=== PATIENT | male | born 1955 | race Caucasian/White ===

== ENCOUNTER 2016-08-02 17:15 | Emergency (ER) | payer OTHER ==
[2016-08-02 17:22] VITALS: BP 156/95; PULSE 93; TEMP 98.3; BMI 22.8
--- NOTE | 2016-08-02 17:23 | PDOC ---
Rapid Medical Evaluation Time Seen by Provider: 08/02/16 17:17 Medical Evaluation: Allergies Allergy/AdvReac Type Severity Reaction Status Date / Time shrimp Allergy Intermediate Itching Verified 08/02/16 17:20 08/02/16 17:20 RME Note: I have performed a brief, in-person evaluation of this patient . This patient presents with CC: woke up with CP, heart palp., and SOB; took 325mg ASA this am Pertinent PE findings are: 156/96, HR=93; lungs clear I have ordered: EKG, labs The patient will proceed to ED for further evaluation. JR
[2016-08-02 17:34] LABS: BASOPHIL 0.3 % (0-2.0); MCHC 33.8 g/dl (32.0-35.9); MEAN CELL VOLUME 85.8 fl (80-96); MEAN PLT VOLUME 8.5 fl (7.5-11.1); NEUTROPHILS 47.9 % (42.8-82.8); PLATELET COUNT 170 K/MM3 (134-434); RDW 13.9 % (11.9-15.9); WHITE BLOOD COUNT 4.4 K/mm3 (4.0-10.0)
[2016-08-02 17:52] LABS: INR 1.11 (0.82-1.09); PROTHROMBIN TIME (PATIENT) 12.2 SEC (9.98-11.88)
[2016-08-02 17:55] LABS: ACTIVATED PTT 29.3 SECONDS (26.9-34.4)
[2016-08-02 17:57] LABS: ALBUMIN 3.8 g/dl (3.4-5.0); ANION GAP 8 (8-16); BILIRUBIN,TOTAL 0.4 mg/dL (0.2-1.0); CALCIUM 8.5 mg/dL (8.5-10.1); CO2 28 mmol/L (21-32); CREATININE 1.1 mg/dL (0.7-1.3); GLUCOSE,RANDOM 115 mg/dL (74-106); SGOT/AST 16 U/L (15-37); SGPT/ALT 29 U/L (12-78); TOT PROT 7.6 g/dl (6.4-8.2)
[2016-08-02 17:59] LABS: ALK PHOS 86 U/L (45-117); TROPONIN I < 0.02 ng/ml (0.00-0.05)
--- NOTE | 2016-08-02 19:58 | PDOC ---
History of Present Illness - General Chief Complaint: Chest Pain Stated Complaint: CHEST PAIN/PALPITATIONS/SOB Time Seen by Provider: 08/02/16 17:17 - History of Present Illness Initial Comments: 08/02/16 19:56 CHIEF COMPLAINT: palpitations HISTORY OF PRESENT ILLNESS: 60 yo M with no significant PMH presents to ED with palpitations and shortness of breath while lying down since yesterday. No recent travel or sick contacts. PAST MEDICAL HISTORY: Denies past medical history FAMILY HISTORY: Denies SOCIAL HISTORY: Denies tobacco, alcohol, illicit drug use. SURGICAL HISTORY: Denies ALLERGIES: No known drug allergies REVIEW OF SYSTEMS General/Constitutional: Denies fever or chills. Denies weakness, weight change. HEENT: Denies change in vision. Denies ear pain or discharge. Denies sore throat. Cardiovascular: Palpitations. Denies chest pain or shortness of breath. Respiratory: Denies cough, wheezing, or hemoptysis. Gastrointestinal: Denies nausea, vomiting, diarrhea or constipation. Denies rectal bleeding. Genitourinary: Denies dysuria, frequency, or change in urination. Musculoskeletal: Denies joint or muscle swelling or pain. Denies neck or back pain. Skin and breasts: Denies rash or easy bruising. Neurologic: Denies headache, vertigo, loss of consciousness, or loss of sensation. PHYSICAL EXAM General Appearance: Well-appearing, appropriately dressed. No apparent distress. HEENT: EOMI, PERRLA,normal voice. No conjunctival pallor. No photophobia, scleral icterus. Respiratory/Chest: Lungs CTAB. Cardiovascular: RRR. S1, S2. Vascular Pulses: Dorsalis-Pedis (R): 2+, Dorsalis-Pedis (L): 2+ Gastrointestinal/Abdominal: Normal bowel sounds. Abdomen soft, non-distended. No tenderness or rebound tenderness. No organomegaly, pulsatile mass, guarding , hernia, hepatomegaly, splenomegaly. Musculoskeletal/Extremities: Normal inspection. FROM of all extremities, normal capillary refill. No tenderness to extremities, pedal edema, swelling, erythema or deformity. Integumentary: Appropriate color, dry, warm. No cyanosis, erythema, jaundice or rash Neurologic: accounts receivable representative II-XII intact. Fully oriented, alert. Appropriate mood/affect. Motor strength 5/5. No appreciable EOM palsy, facial droop or sensory deficit. Past History - Past Medical History Allergies/Adverse Reactions: Allergies Allergy/AdvReac Type Severity Reaction Status Date / Time shrimp Allergy Intermediate Itching Verified 08/02/16 17:20 Home Medications: Ambulatory Orders Aspirin [ASA -] 325 mg PO ONCE 08/02/16 Folic Acid 0.4 mg PO DAILY 08/02/16 Anemia: No Asthma: Yes (NO MED) Cancer: No Cardiac Disorders: No CVA: No COPD: No CHF: No Dementia: No Diabetes: No GI Disorders: No Disorders: No HTN: No Hypercholesterolemia: No Liver Disease: No Suicide Attempt (Hx): No Seizures: No Thyroid Disease: No - Surgical History Abdominal Surgery: Yes (HERNIA REPAIR 2012) Appendectomy: No Cardiac Surgery: No Cholecystectomy: No Lung Surgery: No Neurologic Surgery: No Orthopedic Surgery: Yes (RT ROTATOR CUFF REPAIR, RT MENISCUS REPAIR, PINKY FX) - Psycho/Social/Smoking Cessation Hx Anxiety: No Suicidal Ideation: No Smoking Status: No Smoking History: Never smoked Number of Cigarettes Smoked Daily: 0 Hx Alcohol Use: Yes (VERY RARE) Drug/Substance Use Hx: No Substance Use Type: None Cardiac Specific PMH - Complaint Specific PMHX Pacemaker: No *Physical Exam - Vital Signs Last Vital Signs Temp Pulse Resp BP Pulse Ox 98.3 F 93 H 20 156/95 99 08/02/16 17:20 08/02/16 17:20 08/02/16 17:20 08/02/16 17:20 08/02/16 19:10 ED Treatment Course - LABORATORY CBC & Chemistry Diagram: 08/02/16 17:25 08/02/16 17:25 - ADDITIONAL ORDERS Additional order review: Laboratory Results 08/02/16 08/02/16 17:25 17:25 INR 1.11 PTT (Actin FS) 29.3 Sodium 139 Potassium 4.0 Chloride 103 Carbon Dioxide 28 Anion Gap 8 BUN 13 D Creatinine 1.1 D Creat Clearance w eGFR > 60 Random Glucose 115 H Calcium 8.5 Total Bilirubin 0.4 AST 16 ALT 29 Alkaline Phosphatase 86 Creatine Kinase 126 Troponin I < 0.02 Total Protein 7.6 Albumin 3.8 08/02/16 17:25 RBC 5.14 MCV 85.8 MCHC 33.8 RDW 13.9 MPV 8.5 Neutrophils % 47.9 D Lymphocytes % 33.1 D Monocytes % 17.7 H Eosinophils % 1.0 Basophils % 0.3 - RADIOLOGY Radiology Studies Ordered: Category Date Time Status CHEST PA & LAT [RAD] Stat Radiology 08/02/16 20:00 Ordered *DC/Admit/Observation/Transfer Diagnosis at time of Disposition: Palpitation - Discharge Dispostion Disposition: AGAINST MEDICAL ADVICE - Referrals Referrals: Mj Grace MD [Staff Physician] - Charbel García MD [Staff Physician] - - Patient Instructions Printed Discharge Instructions: DI for Palpitations
--- NOTE | 2016-08-02 20:03 | PDOC ---
*Physical Exam - Vital Signs Last Vital Signs Temp Pulse Resp BP Pulse Ox 98.3 F 93 H 20 156/95 99 08/02/16 17:20 08/02/16 17:20 08/02/16 17:20 08/02/16 17:20 08/02/16 19:10 ED Treatment Course - LABORATORY CBC & Chemistry Diagram: 08/02/16 17:25 08/02/16 17:25 - ADDITIONAL ORDERS Additional order review: Laboratory Results 08/02/16 08/02/16 17:25 17:25 INR 1.11 PTT (Actin FS) 29.3 Sodium 139 Potassium 4.0 Chloride 103 Carbon Dioxide 28 Anion Gap 8 BUN 13 D Creatinine 1.1 D Creat Clearance w eGFR > 60 Random Glucose 115 H Calcium 8.5 Total Bilirubin 0.4 AST 16 ALT 29 Alkaline Phosphatase 86 Creatine Kinase 126 Troponin I < 0.02 Total Protein 7.6 Albumin 3.8 08/02/16 17:25 RBC 5.14 MCV 85.8 MCHC 33.8 RDW 13.9 MPV 8.5 Neutrophils % 47.9 D Lymphocytes % 33.1 D Monocytes % 17.7 H Eosinophils % 1.0 Basophils % 0.3 Medical Decision Making - Medical Decision Making 08/02/16 20:03 agree with care from JEREMIAH Torrez *DC/Admit/Observation/Transfer Diagnosis at time of Disposition: Palpitation - Discharge Dispostion Disposition: AGAINST MEDICAL ADVICE - Referrals Referrals: Charbel García MD [Staff Physician] - Mj Grace MD [Staff Physician] - - Patient Instructions Printed Discharge Instructions: DI for Palpitations
--- NOTE | 2016-08-03 12:05 | EKG ---
Test Reason : Blood Pressure : / mmHG Vent. Rate : 081 BPM Atrial Rate : 081 BPM P-R Int : 160 ms QRS Dur : 070 ms QT Int : 342 ms P-R-T Axes : 058 028 034 degrees QTc Int : 397 ms NORMAL SINUS RHYTHM NORMAL ECG WHEN COMPARED WITH ECG OF 27-DEC-2014 22:36, NO SIGNIFICANT CHANGE WAS FOUND Confirmed by JAMIE LORENZO MD ([id number]) on 08/03/2016 12:05:23 PM Referred By: AKIKO Confirmed By:JAMIE LORENZO MD
== END 2016-08-02 21:08 | disposition left against medical advice (07) ==
LOC: JER 17:15
DX: R00.2 Palpitations (principal); J45.909 Unspecified asthma, uncomplicated
CPT/HCPCS: 36415; 80053; 82550; 84484; 85025; 85610; 85730; 93005; 93010; 99284-25

== ENCOUNTER 2020-08-01 17:31 | Emergency (ER) | payer OTHER ==
[2020-08-01 17:52] VITALS: BP 136/94; PULSE 94; TEMP 97.8; BMI 23.3
== END 2020-08-01 18:38 | disposition home or self-care (01) ==
LOC: JER 17:31
DX: U07.1 COVID-19 (principal)
CPT/HCPCS: 71046-TC-FY; 99283-25

== ENCOUNTER 2021-06-04 01:02 | Emergency (ER) | payer OTHER ==
[2021-06-04 01:30] VITALS: BP 136/73; PULSE 77; TEMP 97.9; BMI 25.0
== END 2021-06-04 01:30 | disposition home or self-care (01) ==
LOC: FER 01:02
DX: G89.18 Other acute postprocedural pain (principal)
CPT/HCPCS: 99281-25